=== PATIENT | male | born 1985 | race Caucasian/White ===

== ENCOUNTER 2020-05-02 17:13 | Emergency (ER) | payer SELFPAY ==
[~2020-05-02] VITALS: Ht 177.8 cm; Wt 68.2 kg
[2020-05-02 17:16] VITALS: Ht 177.8 cm; Wt 68.2 kg
[2020-05-02 17:46] LABS: HEMATOCRIT 39.3 % (42.0-54.0); HEMOGLOBIN 13.9 g/dL (13.5-17.5); LYMPHOCYTES 26.6 % (15-50); MCH 34.4 pg (26.0-34.0); MCHC 35.4 g/dL (31.0-37.0); MCV 97.3 fL (80.0-100.0); MEAN PLATELET VOLUME 9.1 fL (7.4-10.4); NEUTROPHILS 66.8 % (40-80); PLATELET COUNT 278 10x3/uL (130-400); RBC 4.04 10x6/uL (4.20-6.10); RDW 12.4 % (11.5-14.5)
[2020-05-02 17:57] LABS: CALC OSMOLALITY 275 mosm/kg (275-300); CALCIUM 8.5 mg/dL (8.5-10.1); CARBON DIOXIDE 29.2 mmol/L (21.0-32.0); CHLORIDE - SERUM 101 mmol/L (98-107); CREATININE - SERUM 1.1 mg/dL (0.6-1.3); GLUCOSE 99 mg/dL (74-106); POTASSIUM - SERUM 3.7 mmol/L (3.5-5.1); SODIUM 137 mmol/L (136-145); UREA NITROGEN 18 mg/dL (7-18); eGFR NON AFRICAN AMERICAN 81 mL/min (90-120)
[2020-05-02 18:05] LABS: ALBUMIN 3.9 g/dL (3.4-5.0); ALKALINE PHOSPHATASE 88 U/L (30-120); ALT (SGPT) 31 U/L (10-68); BILIRUBIN - TOTAL 0.43 mg/dL (0.2-1.3); PROTEIN - SERUM 7.4 g/dL (6.4-8.2); TROPONIN-I < 0.017 ng/mL (0.000-0.060)
[2020-05-02] MEDS ORDERED: METHOCARBAMOL500 MG PO (18:50)
[2020-05-02] MEDS ORDERED: TORADOL10 MG PO (18:50)
[2020-05-02 19:38] VITALS: BP 114/66
== END 2020-05-02 19:38 | disposition home or self-care (01) ==
LOC: D.ER 17:13
DX: S29.019A Strain of muscle and tendon of unspecified wall of thorax, initial encounter (principal); S20.212A Contusion of left front wall of thorax, initial encounter; X58.XXXA Exposure to other specified factors, initial encounter; Y93.89 Activity, other specified; Y92.69 Other specified industrial and construction area as the place of occurrence of the external cause